=== PATIENT | male | born 2000 | race Caucasian/White ===

== ENCOUNTER 2022-02-20 23:52 | Emergency (ER) | payer BC ==
[2022-02-21] MEDS ORDERED: Cyclobenzaprine 10 MG Tab PO ONE (00:29)
[2022-02-21] MEDS ORDERED: Ketorolac 30 MG/ML SDV IM ONE (00:29)
== END 2022-02-21 02:05 | disposition home or self-care (01) ==
LOC: JP.ED 23:52
DX: M54.50 Low back pain, unspecified (principal)
CPT/HCPCS: 72100; 96372; 99283; A9270; J1885